=== PATIENT | female | born 1990 | race Two or more races ===

== ENCOUNTER 2020-09-12 20:46 | Emergency (ER) | payer OTHER, MEDICAID ==
[~2020-09-12] VITALS: Ht 172.7 cm; Wt 117.9 kg
[2020-09-12 21:42] VITALS: BP 147/84
[2020-09-12] MEDS ORDERED: HYDROcodone-ACET 5/325MG TAB PO ONE (22:30)
== END 2020-09-12 23:13 | disposition home or self-care (01) ==
LOC: ER 20:46
DX: M54.2 Cervicalgia (principal); F41.9 Anxiety disorder, unspecified; V43.52XA Car driver injured in collision with other type car in traffic accident, initial encounter; Y93.89 Activity, other specified; Y92.89 Other specified places as the place of occurrence of the external cause; Y99.8 Other external cause status